=== PATIENT | male | born 1975 | race Caucasian/White ===

== ENCOUNTER → 2018-02-03 06:05 | Day surgery (SDC) | payer BC ==
[~2018-02-03 06:05] MED LIST: Buffered Lidocaine 0.9% SYRIN* 5 ML/SYR SYRINGE INTRADERM ONE; Chloroprocaine 2%* 20 ML VIAL ONE; Dexmedetomidine* 200 MCG/2 ML 2 ML VIAL ONE; EPINEPHrine SYR 0.1 MG/ML* (1:10,000) SYRINGE ONE; Lidocaine 2% PF * 5 ML VIAL ONE; Midazolam* 1 MG/ML 2 ML VIAL (2 MG) ONE; Propofol* 10 MG/ML 20 ML BTL IV PUSH ONE; Sterile Water for Inj* 10 ML ONE; Succinylcholine* 20 MG/ML 10 ML VIAL ONE; ceFAZolin 1 GM in Dextrose (*) 0 GM/0 ML BAG IVPB ONE; ceFAZolin 2 GM PREMIX (*) 0 GM/0 ML BAG IVPB ONE
[2018-02-03 06:53] VITALS: BP 116/80
== END | disposition home or self-care (01) ==
LOC: OR 06:05
PROVIDERS: ATTEND Surgery
DX: K60.2 Anal fissure, unspecified (principal); Z53.9 Procedure and treatment not carried out, unspecified reason
CPT/HCPCS: J0171; J0330; J0690; J2250; J2400; J2704

== ENCOUNTER 2021-04-23 11:39 | Inpatient (IN) ==
[2021-04-23] MEDS ORDERED: NS 0.9% 1000 ml BAG 1,000 ML IV ONE (12:30)
[2021-04-23] MEDS ORDERED: methylPREDNISolone 125 mg 2 ML VIAL IV ONE (13:01)
[2021-04-23] MEDS ORDERED: Albuterol HFA INHALER 8 gm MDI INH ONE (13:02)
[2021-04-23] MEDS ORDERED: cefTRIAXone 1 gm/50 mL NS BAG 1 GM/50 ML BAG IV ONE (13:18)
[2021-04-23] MEDS ORDERED: Azithromycin 500 mg/250 ml NS 500 MG/250 ML BAG IVPB ONE (13:19)
[2021-04-23] MEDS ORDERED: Dexamethasone IV 4 MG/ML VIAL 1 ml VIAL IV SLOW PU ONE (13:28)
[2021-04-23 13:39] LABS: ABS Lymphocytes 0.5 10^3/ul (1.0-4.8); ABS Monocytes 0.3 10^3/ul (0-0.8); ABS Neutrophils 2.8 10^3/ul (1.5-7.7); Eosinophil % 0.1 %; Hematocrit 44 % (42-52); Hemoglobin 14.8 g/dL (14.0-18.0); Mean Corpuscular HGB Conc 34 g/dL (31-36); Mean Corpuscular Hemoglobin 29 pg (27-31); Mean Corpuscular Volume 86 fL (80-94); Mean Platelet Volume 8.4 fL (7.4-10.4); Nucleated Red Blood Cells % 0.1; Platelet Count 170 10^3/uL (150-450); Red Blood Count 5.06 10^6 /uL (4.18-5.48); Red Cell Distribution Width 14 % (10-15); White Blood Count 3.6 10^3/uL (3.5-10.8)
[2021-04-23] MEDS ORDERED: Ondansetron ODT 4 mg TAB 4 MG TAB ONE (13:40)
[2021-04-23] MEDS ORDERED: Ondansetron 4 mg VIAL 2 MG/ML 2 ml VIAL ONE (13:43)
[2021-04-23 13:46] LABS: Rapid COVID-19 Molecular Detected (Undetected)
[2021-04-23 13:55] LABS: Influenza A Molecular Negative (Negative); Influenza B Molecular Negative (Negative)
[2021-04-23 14:01] LABS: Albumin/Globulin Ratio 1.3 (1-3); Globulin 3.1 g/dL (2-4); Potassium 3.6 mmol/L (3.5-5.0); Total Bilirubin 0.5 mg/dL (0.2-1.0); Total Protein 7.1 g/dL (6.4-8.9)
[2021-04-23] MEDS ORDERED: Iohexol 350 (CONTRAST) 500 ML MDV IV ONE (14:06)
[2021-04-23] MEDS ORDERED: Ondansetron 4 mg VIAL 2 MG/ML 2 ml VIAL IV ONE (14:09)
[2021-04-23] MEDS ORDERED: Remdesivir 100 mg Vial 200 MG in NS 0.9% 250 ml 210 ML IV ONE (17:25)
[2021-04-23] MEDS ORDERED: NS 0.9% 1000 ml BAG 1,000 ML IV SCH (17:30)
[2021-04-23] MEDS: Enoxaparin 40 MG/0.4 ML SYR SUBCUT SCH (20:55)
[2021-04-23] MEDS: Ondansetron 4 mg VIAL 2 MG/ML 2 ml VIAL IV PRN (23:07)
[2021-04-24] MEDS ORDERED: Albuterol HFA INHALER 8 gm MDI INH PRN (03:14)
[2021-04-24 06:36] LABS: INR 1.33 (0.86-1.15)
[2021-04-24] MEDS ORDERED: Lisinopril/HCTZ 20/12.5 TB(NF) PO SCH (09:00)
[2021-04-24] MEDS: Enoxaparin 40 MG/0.4 ML SYR SUBCUT SCH (17:27)
[2021-04-24] MEDS: Mometasone/Formoter 100/5 MDI INH SCH (19:32)
[2021-04-24] MEDS: Ondansetron 4 mg VIAL 2 MG/ML 2 ml VIAL IV PRN (20:45)
[2021-04-24] MEDS: Remdesivir 100 mg Vial 100 MG in NS 0.9% 250 ml 230 ML IV SCH (20:45)
[2021-04-25] MEDS: Mometasone/Formoter 100/5 MDI INH SCH ×2 (06:59→21:30)
[2021-04-25 07:39] LABS: INR 1.3 (0.86-1.15)
[2021-04-25 07:40] LABS: Hematocrit 40 % (42-52); Hemoglobin 13.7 g/dL (14.0-18.0); Mean Corpuscular HGB Conc 34 g/dL (31-36); Mean Corpuscular Hemoglobin 30 pg (27-31); Mean Corpuscular Volume 87 fL (80-94); Red Blood Count 4.64 10^6 /uL (4.18-5.48); Red Cell Distribution Width 14 % (10-15)
[2021-04-25 07:45] LABS: ALT 34 U/L (7-52); AST 36 U/L (13-39); Albumin 3.7 g/dL (3.2-5.2); Albumin/Globulin Ratio 1.3 (1-3); Alkaline Phosphatase 39 U/L (35-149); Anion Gap 7 mmol/L (2-11); Blood Urea Nitrogen 17 mg/dL (6-24); CO2 Carbon Dioxide 30 mmol/L (22-32); Calcium 8.6 mg/dL (8.6-10.3); Chloride 98 mmol/L (101-111); Globulin 2.8 g/dL (2-4); Glucose 133 mg/dL (70-100); Potassium 4.1 mmol/L (3.5-5.0); Sodium 135 mmol/L (135-145); Total Protein 6.5 g/dL (6.4-8.9)
[2021-04-25 08:35] LABS: Mean Platelet Volume 9.5 fL (7.4-10.4); Platelet Count 224 10^3/uL (150-450); White Blood Count 7.8 10^3/uL (3.5-10.8)
[2021-04-25 10:06] LABS: C Reactive Protein 23.91 mg/L (<8.01)
[2021-04-25] MEDS: cefTRIAXone 1 gm/50 mL NS BAG 1 GM/50 ML BAG IVPB SCH (10:58)
[2021-04-25 11:01] LABS: Ferritin 438.8 ng/mL (24-336)
[2021-04-25] MEDS: Azithromycin 500 mg/250 ml NS 500 MG/250 ML BAG IVPB SCH (11:56)
[2021-04-25] MEDS: Enoxaparin 40 MG/0.4 ML SYR SUBCUT SCH (18:08)
[2021-04-25] MEDS: Remdesivir 100 mg Vial 100 MG in NS 0.9% 250 ml 230 ML IV SCH (20:51)
[2021-04-26 07:29] LABS: Hematocrit 41 % (42-52); Hemoglobin 13.9 g/dL (14.0-18.0); Mean Corpuscular HGB Conc 34 g/dL (31-36); Mean Corpuscular Hemoglobin 29 pg (27-31); Mean Corpuscular Volume 86 fL (80-94); Mean Platelet Volume 8.2 fL (7.4-10.4); Platelet Count 226 10^3/uL (150-450); Red Blood Count 4.74 10^6 /uL (4.18-5.48); Red Cell Distribution Width 14 % (10-15)
[2021-04-26 07:46] LABS: Calcium 8.9 mg/dL (8.6-10.3); Magnesium 1.9 mg/dL (1.9-2.7); Potassium 3.9 mmol/L (3.5-5.0)
[2021-04-26 07:53] LABS: INR 1.26 (0.86-1.15)
[2021-04-26] MEDS: Mometasone/Formoter 100/5 MDI INH SCH (07:55)
[2021-04-26] MEDS ORDERED: Potassium Chlor 10 meq TAB PO ONE (08:52)
[2021-04-26] MEDS ORDERED: Magnesium Sulfate IV 1GM/100ML 1 GM/100 ML BAG IV ONE (08:52)
[2021-04-26 10:37] VITALS: BP 145/54
[2021-04-26] MEDS: cefTRIAXone 1 gm/50 mL NS BAG 1 GM/50 ML BAG IVPB SCH (11:11)
[2021-04-26] MEDS: Azithromycin 500 mg/250 ml NS 500 MG/250 ML BAG IVPB SCH (12:01)
== END 2021-04-26 15:00 | disposition home or self-care (01) | DRG 137 ==
LOC: MED 11:39 → ED 11:39 → SUATTDRO 20:11
PROVIDERS: ADMIT Internal Medicine; ATTEND Internal Medicine